=== PATIENT | female | born 1970 | race Caucasian/White ===

== ENCOUNTER 2017-04-12 07:39 | Day surgery (SDC) | payer OTHER ==
[2017-04-12] MEDS ORDERED: IRON SUCROSE INJECTION 200 MG in SODIUM CHLORIDE 100 ML IVPB ONE (08:00)
[2017-04-12] MEDS ORDERED: IRON SUCROSE INJECTION 100 MG in SODIUM CHLORIDE 100 ML IVPB ONE (08:00)
[2017-04-12 10:20] LABS: BASOPHIL 0.7 % (0-2.0); EOSINOPHIL 3.8 % (0-4.5); MCH 20.5 pg (25.7-33.7); MCHC 30.7 g/dl (32.0-36.0); MEAN CELL VOLUME 66.6 fl (80-96); MEAN PLT VOLUME 8.9 fl (7.5-11.1); PLATELET COUNT 239 K/MM3 (134-434); RDW 18.8 % (11.6-15.6); WHITE BLOOD COUNT 5.4 K/mm3 (4.0-10.0)
[2017-04-12 10:52] LABS: ALBUMIN 3.4 g/dl (3.4-5.0); ANION GAP 11 (8-16); BILIRUBIN,DIRECT 0.1 mg/dL (0.0-0.2); BILIRUBIN,TOTAL 0.3 mg/dL (0.2-1.0); CALCIUM 8.2 mg/dL (8.5-10.1); CO2 20 mmol/L (21-32); CREATININE 0.7 mg/dL (0.55-1.02); GLUCOSE,RANDOM 87 mg/dL (74-106); MAGNESIUM 1.8 mg/dL (1.8-2.4); SGOT/AST 10 U/L (15-37); SGPT/ALT 14 U/L (12-78); TOT PROT 7.1 g/dl (6.4-8.2)
[2017-04-12 10:55] LABS: ALK PHOS 137 U/L (45-117); FERRITIN 6.064 ng/ml (6.9-282.5)
[2017-04-12 11:31] VITALS: BP 101/62; PULSE 68; TEMP 98.9
== END 2017-04-12 11:45 | disposition home or self-care (01) ==
LOC: JONCNONCHE 07:39 → J7W 10:10 → JONCNONCHE 11:45
PROVIDERS: ATTEND Internal Medicine Hematology & Oncology
PROC: 3E033GC Introduction of Other Therapeutic Substance into Peripheral Vein, Percutaneous Approach (ICD-10-PCS; principal; 2017-04-12)
DX: D50.9 Iron deficiency anemia, unspecified (principal); Z98.84 Bariatric surgery status
CPT/HCPCS: 36415; 80053; 80076; 82728; 83735; 85025; 96365; J1756

== ENCOUNTER 2017-04-26 07:35 | Day surgery (SDC) | payer OTHER ==
[2017-04-26] MEDS ORDERED: IRON SUCROSE INJECTION 200 MG in SODIUM CHLORIDE 100 ML IVPB ONE (08:00)
[2017-04-26] MEDS ORDERED: IRON SUCROSE INJECTION 100 MG in SODIUM CHLORIDE 100 ML IVPB ONE (08:00)
[2017-04-26 08:25] VITALS: TEMP 98.5
[2017-04-26 09:01] VITALS: BP 103/64; PULSE 63
== END 2017-04-26 09:10 | disposition home or self-care (01) ==
LOC: JONCCHEMO 07:35 → J7W 08:10 → JONCCHEMO 09:10
PROVIDERS: ATTEND Internal Medicine Hematology & Oncology
PROC: 3E033GC Introduction of Other Therapeutic Substance into Peripheral Vein, Percutaneous Approach (ICD-10-PCS; principal; 2017-04-26)
DX: D50.9 Iron deficiency anemia, unspecified (principal)
CPT/HCPCS: 96365; 96417; J1756

== ENCOUNTER 2017-05-20 07:35 | Day surgery (SDC) | payer OTHER ==
[2017-05-20] MEDS: IRON SUCROSE INJECTION 200 MG in SODIUM CHLORIDE 100 ML IVPB ONE ×2 (08:03→11:27)
[2017-05-20] MEDS: CYANOCOBALAMIN (VITAMIN B-12) 1000 MCG/1 ML VIAL IM ONE ×2 (08:03→11:25)
[2017-05-20 09:24] VITALS: TEMP 98.3
[2017-05-20 09:34] VITALS: BP 113/70; PULSE 87
== END 2017-05-20 08:45 | disposition home or self-care (01) ==
LOC: JONCCHEMO 07:35 → J7W 07:57 → JONCCHEMO 08:45
PROVIDERS: ATTEND Internal Medicine Hematology & Oncology
PROC: 3E033GC Introduction of Other Therapeutic Substance into Peripheral Vein, Percutaneous Approach (ICD-10-PCS; principal; 2017-05-20)
PROC: 3E013GC Introduction of Other Therapeutic Substance into Subcutaneous Tissue, Percutaneous Approach (ICD-10-PCS; 2017-05-20)
DX: D50.9 Iron deficiency anemia, unspecified (principal); K90.9 Intestinal malabsorption, unspecified
CPT/HCPCS: 96417; J1756

== ENCOUNTER 2017-06-15 07:14 | Day surgery (SDC) | payer OTHER ==
[2017-06-15] MEDS ORDERED: IRON SUCROSE INJECTION 200 MG in SODIUM CHLORIDE 100 ML IVPB ONE (08:00)
[2017-06-15] MEDS ORDERED: CYANOCOBALAMIN (VITAMIN B-12) 1000 MCG/1 ML VIAL IM ONE (08:30)
[2017-06-15 08:48] VITALS: TEMP 98.9
[2017-06-15 09:40] VITALS: BP 116/67; PULSE 75
== END 2017-06-15 09:20 | disposition home or self-care (01) ==
LOC: JONCNONCHE 07:14 → J7W 08:26 → JONCNONCHE 09:20
PROVIDERS: ATTEND Internal Medicine Hematology & Oncology
PROC: 3E033GC Introduction of Other Therapeutic Substance into Peripheral Vein, Percutaneous Approach (ICD-10-PCS; principal; 2017-06-15)
PROC: 3E023GC Introduction of Other Therapeutic Substance into Muscle, Percutaneous Approach (ICD-10-PCS; 2017-06-15)
DX: D50.9 Iron deficiency anemia, unspecified (principal); K90.9 Intestinal malabsorption, unspecified
CPT/HCPCS: 96417; J1756

== ENCOUNTER 2017-07-15 07:27 | Day surgery (SDC) | payer OTHER ==
[2017-07-15] MEDS ORDERED: IRON SUCROSE INJECTION 200 MG in SODIUM CHLORIDE 100 ML IVPB ONE ×2 (09:00→13:00)
[2017-07-15] MEDS ORDERED: CYANOCOBALAMIN (VITAMIN B-12) 1000 MCG/1 ML VIAL IM ONE (09:00)
[2017-07-15 09:29] VITALS: BP 118/79; PULSE 89; TEMP 97.5
[2017-07-15 10:01] LABS: BASOPHIL 0.5 % (0-2.0); EOSINOPHIL 2.4 % (0-4.5); MCH 21.9 pg (25.7-33.7); MEAN CELL VOLUME 70.7 fl (80-96); MEAN PLT VOLUME 8.4 fl (7.5-11.1); PLATELET COUNT 255 K/MM3 (134-434); RDW 18.5 % (11.6-15.6); WHITE BLOOD COUNT 5.7 K/mm3 (4.0-10.0)
[2017-07-15 12:19] LABS: ALBUMIN 3.5 g/dl (3.4-5.0); ALK PHOS 155 U/L (45-117); ANION GAP 9 (8-16); BILIRUBIN,DIRECT < 0.2 mg/dL (0.0-0.2); BILIRUBIN,TOTAL 0.3 mg/dL (0.2-1.0); CALCIUM 7.9 mg/dL (8.5-10.1); CO2 24 mmol/L (21-32); CREATININE 0.4 mg/dL (0.55-1.02); GLUCOSE,RANDOM 88 mg/dL (74-106); MAGNESIUM 2.2 mg/dL (1.8-2.4); SGOT/AST 9 U/L (15-37); SGPT/ALT 13 U/L (12-78); TOT PROT 7.1 g/dl (6.4-8.2)
[2017-07-15 12:21] LABS: FERRITIN 6.574 ng/ml (6.9-282.5)
[2017-07-16 08:07] LABS: SERUM IRON 247 ug/dL (27-159); TOTAL IRON BINDING CAPACITY 555 ug/dL (250-450); UIBC 308 ug/dL (131-425)
== END 2017-07-15 09:10 | disposition home or self-care (01) ==
LOC: JONCNONCHE 07:27 → J7W 08:30 → JONCNONCHE 09:10
PROVIDERS: ATTEND Internal Medicine Hematology & Oncology
PROC: 3E033GC Introduction of Other Therapeutic Substance into Peripheral Vein, Percutaneous Approach (ICD-10-PCS; principal; 2017-07-15)
PROC: 3E013GC Introduction of Other Therapeutic Substance into Subcutaneous Tissue, Percutaneous Approach (ICD-10-PCS; 2017-07-15)
DX: D50.9 Iron deficiency anemia, unspecified (principal); K90.9 Intestinal malabsorption, unspecified
CPT/HCPCS: 36415; 80053; 80076; 82607; 82728; 83540; 83550; 83735; 84702; 85025; 96365; 96372; 96417; J1756

== ENCOUNTER 2017-08-11 07:39 | Day surgery (SDC) | payer OTHER ==
[2017-08-11] MEDS ORDERED: IRON SUCROSE INJECTION 200 MG in SODIUM CHLORIDE 100 ML IVPB ONE (10:00)
[2017-08-11] MEDS ORDERED: CYANOCOBALAMIN (VITAMIN B-12) 1000 MCG/1 ML VIAL IM ONE (10:00)
[2017-08-11 10:16] VITALS: BP 122/76; PULSE 90; TEMP 98.1
== END 2017-08-11 09:45 | disposition home or self-care (01) ==
LOC: JONCNONCHE 07:39 → J7W 08:27 → JONCNONCHE 09:45
PROVIDERS: ATTEND Internal Medicine Hematology & Oncology
PROC: 3E033GC Introduction of Other Therapeutic Substance into Peripheral Vein, Percutaneous Approach (ICD-10-PCS; principal; 2017-08-11)
DX: D50.9 Iron deficiency anemia, unspecified (principal); K90.9 Intestinal malabsorption, unspecified
CPT/HCPCS: 96365; J1756

== ENCOUNTER 2017-09-08 07:19 | Day surgery (SDC) | payer OTHER ==
[~2017-09-08 07:19] MED LIST: IRON SUCROSE INJECTION 200 MG in SODIUM CHLORIDE 100 ML IVPB ONE
[2017-09-08] MEDS ORDERED: IRON SUCROSE INJECTION 200 MG in SODIUM CHLORIDE 100 ML IVPB ONE (08:00)
[2017-09-08] MEDS ORDERED: IRON SUCROSE INJECTION 100 MG in SODIUM CHLORIDE 100 ML IVPB ONE (08:00)
[2017-09-08] MEDS ORDERED: CYANOCOBALAMIN (VITAMIN B-12) 1000 MCG/1 ML VIAL IM ONE (08:00)
[2017-09-08 09:23] LABS: BASO % 0.6 % (0-2.0); EOS % 2.9 % (0-4.5); HEMATOCRIT 38.1 % (32.4-45.2); HEMOGLOBIN 11.8 GM/dL (10.7-15.3); MCH 22.1 pg (25.7-33.7); MCHC 30.9 g/dl (32.0-36.0); MEAN CELL VOLUME 71.5 fl (80-96); MEAN PLT VOLUME 8.3 fl (7.5-11.1); MONO % 7.6 % (3.8-10.2); NEUT % 55.9 % (42.8-82.8); PLATELET COUNT 249 K/MM3 (134-434); RBC 5.34 M/mm3 (3.60-5.2); RDW 18.5 % (11.6-15.6); WHITE BLOOD COUNT 5.1 K/mm3 (4.0-10.0)
[2017-09-08 09:52] LABS: ALBUMIN 3.5 g/dl (3.4-5.0); ANION GAP 8 (8-16); BILIRUBIN,DIRECT < 0.2 mg/dL (0.0-0.2); BLOOD UREA NITROGEN 10 mg/dL (7-18); CHLORIDE 106 mmol/L (98-107); CO2 25 mmol/L (21-32); CREATININE 0.3 mg/dL (0.55-1.02); GLUCOSE,RANDOM 85 mg/dL (74-106); MAGNESIUM 1.9 mg/dL (1.8-2.4); SGOT/AST 8 U/L (15-37); SGPT/ALT 11 U/L (12-78); SODIUM 139 mmol/L (136-145)
[2017-09-08 09:54] LABS: ALK PHOS 141 U/L (45-117); BILIRUBIN,TOTAL 0.5 mg/dL (0.2-1.0)
[2017-09-08 11:14] VITALS: TEMP 98.1
[2017-09-08 11:22] VITALS: BP 117/64; PULSE 71
== END 2017-09-08 09:50 | disposition home or self-care (01) ==
LOC: JONCNONCHE 07:19 → J7W 09:15 → JONCNONCHE 09:50
PROVIDERS: ATTEND Internal Medicine Hematology & Oncology
PROC: 3E033GC Introduction of Other Therapeutic Substance into Peripheral Vein, Percutaneous Approach (ICD-10-PCS; principal; 2017-09-08)
DX: D50.9 Iron deficiency anemia, unspecified (principal)
CPT/HCPCS: 36415; 80053; 80076; 82728; 83735; 85025; 96365; J1756

== ENCOUNTER 2017-10-20 07:05 | Day surgery (SDC) | payer OTHER ==
[2017-10-20] MEDS ORDERED: IRON SUCROSE INJECTION 200 MG in SODIUM CHLORIDE 100 ML IVPB ONE (08:00)
[2017-10-20] MEDS ORDERED: CYANOCOBALAMIN (VITAMIN B-12) 1000 MCG/1 ML VIAL IM ONE (08:00)
[2017-10-20 08:17] VITALS: TEMP 98.4
[2017-10-20 09:05] LABS: BASO % 0.6 % (0-2.0); EOS % 3.2 % (0-4.5); HEMOGLOBIN 11.4 GM/dL (10.7-15.3); MCH 22.7 pg (25.7-33.7); MCHC 31.8 g/dl (32.0-36.0); MEAN CELL VOLUME 71.5 fl (80-96); MEAN PLT VOLUME 8.6 fl (7.5-11.1); MONO % 6.1 % (3.8-10.2); NEUT % 60.1 % (42.8-82.8); PLATELET COUNT 245 K/MM3 (134-434); RBC 5.03 M/mm3 (3.60-5.2); WHITE BLOOD COUNT 5.5 K/mm3 (4.0-10.0)
[2017-10-20 09:31] LABS: ALBUMIN 3.4 g/dl (3.4-5.0); ANION GAP 12 (8-16); BLOOD UREA NITROGEN 11 mg/dL (7-18); CALCIUM 8.3 mg/dL (8.5-10.1); CHLORIDE 109 mmol/L (98-107); CO2 20 mmol/L (21-32); CREATININE 0.5 mg/dL (0.55-1.02); GLUCOSE,RANDOM 115 mg/dL (74-106); POTASSIUM 3.6 mmol/L (3.5-5.1); SGOT/AST 7 U/L (15-37); SGPT/ALT 7 U/L (12-78); SODIUM 141 mmol/L (136-145)
[2017-10-20 09:33] LABS: ALK PHOS 130 U/L (45-117); BILIRUBIN,TOTAL 0.4 mg/dL (0.2-1.0); TOT PROT 6.8 g/dl (6.4-8.2)
[2017-10-20 09:42] LABS: ALBUMIN 3.4 g/dl (3.4-5.0); ALK PHOS 134 U/L (45-117); BILIRUBIN,DIRECT < 0.2 mg/dL (0.0-0.2); BILIRUBIN,TOTAL 0.4 mg/dL (0.2-1.0); MAGNESIUM 1.9 mg/dL (1.8-2.4); SGOT/AST 9 U/L (15-37); SGPT/ALT 8 U/L (12-78); TOT PROT 6.9 g/dl (6.4-8.2)
[2017-10-20 10:50] VITALS: BP 112/65; PULSE 82
== END 2017-10-20 10:10 | disposition home or self-care (01) ==
LOC: JONCCHEMO 07:05 → J7W 09:07 → JONCCHEMO 10:10
PROVIDERS: ATTEND Internal Medicine Hematology & Oncology
PROC: 3E033GC Introduction of Other Therapeutic Substance into Peripheral Vein, Percutaneous Approach (ICD-10-PCS; principal; 2017-10-20)
DX: D50.9 Iron deficiency anemia, unspecified (principal)
CPT/HCPCS: 36415; 80053; 80076; 82607; 83735; 85025; 96365; 96372; J1756

== ENCOUNTER 2017-11-10 07:29 | Day surgery (SDC) | payer OTHER ==
[2017-11-10] MEDS ORDERED: IRON SUCROSE INJECTION 100 MG in SODIUM CHLORIDE 100 ML IVPB ONE (08:00)
[2017-11-10] MEDS ORDERED: IRON SUCROSE INJECTION 200 MG in SODIUM CHLORIDE 100 ML IVPB ONE (08:00)
[2017-11-10] MEDS ORDERED: CYANOCOBALAMIN (VITAMIN B-12) 1000 MCG/1 ML VIAL IM ONE (08:00)
[2017-11-10 13:03] VITALS: TEMP 99.1
[2017-11-10 13:05] VITALS: BP 92/37; PULSE 100
== END 2017-11-10 10:00 | disposition home or self-care (01) ==
LOC: JONCNONCHE 07:29 → J7W 09:13 → JONCNONCHE 10:00
PROVIDERS: ATTEND Internal Medicine Hematology & Oncology
PROC: 3E033GC Introduction of Other Therapeutic Substance into Peripheral Vein, Percutaneous Approach (ICD-10-PCS; principal; 2017-11-10)
PROC: 3E013GC Introduction of Other Therapeutic Substance into Subcutaneous Tissue, Percutaneous Approach (ICD-10-PCS; 2017-11-10)
DX: D50.9 Iron deficiency anemia, unspecified (principal)
CPT/HCPCS: 96365; 96372; J1756

== ENCOUNTER 2017-12-01 07:29 | Day surgery (SDC) | payer OTHER ==
[2017-12-01] MEDS ORDERED: CYANOCOBALAMIN (VITAMIN B-12) 1000 MCG/1 ML VIAL IM ONE (10:00)
[2017-12-01] MEDS ORDERED: IRON SUCROSE INJECTION 200 MG in SODIUM CHLORIDE 100 ML IVPB ONE (10:00)
[2017-12-01 10:18] LABS: BASO % 0.7 % (0-2.0); MCH 22.8 pg (25.7-33.7); MCHC 31.7 g/dl (32.0-36.0); MEAN PLT VOLUME 8.2 fl (7.5-11.1); MONO % 7.1 % (3.8-10.2); NEUT % 59.2 % (42.8-82.8); PLATELET COUNT 261 K/MM3 (134-434); RBC 5.27 M/mm3 (3.60-5.2); RDW 17.9 % (11.6-15.6); WHITE BLOOD COUNT 4.8 K/mm3 (4.0-10.0)
[2017-12-01 10:45] LABS: ALBUMIN 3.7 g/dl (3.4-5.0); ALBUMIN 3.8 g/dl (3.4-5.0); ALK PHOS 136 U/L (45-117); ANION GAP 7 (8-16); BILIRUBIN,DIRECT < 0.2 mg/dL (0.0-0.2); BILIRUBIN,TOTAL 0.3 mg/dL (0.2-1.0); BLOOD UREA NITROGEN 10 mg/dL (7-18); CALCIUM 8.5 mg/dL (8.5-10.1); CHLORIDE 110 mmol/L (98-107); CO2 25 mmol/L (21-32); CREATININE 0.5 mg/dL (0.55-1.02); GLUCOSE,RANDOM 71 mg/dL (74-106); MAGNESIUM 1.9 mg/dL (1.8-2.4); POTASSIUM 3.8 mmol/L (3.5-5.1); SGOT/AST 10 U/L (15-37); SGOT/AST 11 U/L (15-37); SGPT/ALT 7 U/L (12-78); SGPT/ALT 9 U/L (12-78); SODIUM 142 mmol/L (136-145); TOT PROT 7.2 g/dl (6.4-8.2)
[2017-12-01 10:46] LABS: ALK PHOS 134 U/L (45-117)
[2017-12-01 15:49] VITALS: TEMP 98.2
[2017-12-01 15:50] VITALS: BP 99/61; PULSE 99
== END 2017-12-01 11:30 | disposition home or self-care (01) ==
LOC: JONCNONCHE 07:29 → J7W 10:27 → JONCNONCHE 11:30
PROVIDERS: ATTEND Internal Medicine Hematology & Oncology
PROC: 3E033GC Introduction of Other Therapeutic Substance into Peripheral Vein, Percutaneous Approach (ICD-10-PCS; principal; 2017-12-01)
DX: D50.9 Iron deficiency anemia, unspecified (principal)
CPT/HCPCS: 36415; 80053; 80076; 83735; 85025; 96365; J1756

== ENCOUNTER 2017-12-22 07:21 | Day surgery (SDC) | payer OTHER ==
[2017-12-22] MEDS ORDERED: CYANOCOBALAMIN (VITAMIN B-12) 1000 MCG/1 ML VIAL IM ONE (08:00)
[2017-12-22] MEDS ORDERED: IRON SUCROSE INJECTION 200 MG in SODIUM CHLORIDE 100 ML IVPB ONE (08:00)
[2017-12-22 09:02] LABS: BASO % 0.6 % (0-2.0); EOS % 2.7 % (0-4.5); HEMOGLOBIN 12.2 GM/dL (10.7-15.3); LYMPH % 31.6 % (8-40); MCH 23.3 pg (25.7-33.7); MCHC 32.1 g/dl (32.0-36.0); MEAN CELL VOLUME 72.5 fl (80-96); MEAN PLT VOLUME 8.3 fl (7.5-11.1); MONO % 7.6 % (3.8-10.2); NEUT % 57.5 % (42.8-82.8); PLATELET COUNT 279 K/MM3 (134-434); RBC 5.25 M/mm3 (3.60-5.2); RDW 18.4 % (11.6-15.6); WHITE BLOOD COUNT 5.1 K/mm3 (4.0-10.0)
[2017-12-22 09:27] LABS: ALBUMIN 3.4 g/dl (3.4-5.0); ANION GAP 8 (8-16); BILIRUBIN,DIRECT < 0.2 mg/dL (0.0-0.2); BILIRUBIN,TOTAL 0.5 mg/dL (0.2-1.0); BLOOD UREA NITROGEN 9 mg/dL (7-18); CHLORIDE 109 mmol/L (98-107); CO2 24 mmol/L (21-32); CREATININE 0.5 mg/dL (0.55-1.02); GLUCOSE,RANDOM 87 mg/dL (74-106); MAGNESIUM 2.1 mg/dL (1.8-2.4); POTASSIUM 3.9 mmol/L (3.5-5.1); SGOT/AST 7 U/L (15-37); SGPT/ALT 10 U/L (12-78); SODIUM 141 mmol/L (136-145)
[2017-12-22 09:28] LABS: ALK PHOS 143 U/L (45-117)
[2017-12-22 10:53] VITALS: TEMP 98.7
[2017-12-22 10:54] VITALS: BP 122/69; PULSE 68
== END 2017-12-22 10:10 | disposition home or self-care (01) ==
LOC: JONCNONCHE 07:21
PROVIDERS: ATTEND Internal Medicine Hematology & Oncology
PROC: 3E033GC Introduction of Other Therapeutic Substance into Peripheral Vein, Percutaneous Approach (ICD-10-PCS; principal; 2017-12-22)
DX: D50.9 Iron deficiency anemia, unspecified (principal)
CPT/HCPCS: 36415; 80053; 80076; 83735; 85025; 96365; J1756

== ENCOUNTER 2018-01-12 07:21 | Day surgery (SDC) | payer OTHER ==
[2018-01-12] MEDS ORDERED: CYANOCOBALAMIN (VITAMIN B-12) 1000 MCG/1 ML VIAL IM ONE (08:00)
[2018-01-12] MEDS ORDERED: IRON SUCROSE INJECTION 200 MG in SODIUM CHLORIDE 100 ML IVPB ONE (08:00)
[2018-01-12 09:22] LABS: BASO % 0.4 % (0-2.0); EOS % 2.8 % (0-4.5); HEMATOCRIT 37.3 % (32.4-45.2); LYMPH % 30.1 % (8-40); MCH 23.2 pg (25.7-33.7); MCHC 32.1 g/dl (32.0-36.0); MEAN CELL VOLUME 72.4 fl (80-96); MEAN PLT VOLUME 8.2 fl (7.5-11.1); MONO % 7.8 % (3.8-10.2); NEUT % 58.9 % (42.8-82.8); PLATELET COUNT 266 K/MM3 (134-434); RBC 5.15 M/mm3 (3.60-5.2); RDW 18.8 % (11.6-15.6); WHITE BLOOD COUNT 5.6 K/mm3 (4.0-10.0)
[2018-01-12 09:56] LABS: ALK PHOS 135 U/L (45-117); BILIRUBIN,TOTAL 0.2 mg/dL (0.2-1.0); CHLORIDE 107 mmol/L (98-107); POTASSIUM 3.7 mmol/L (3.5-5.1); SGOT/AST 10 U/L (15-37); SODIUM 139 mmol/L (136-145)
[2018-01-12 10:10] LABS: ALBUMIN 3.4 g/dl (3.4-5.0); ANION GAP 9 (8-16); BILIRUBIN,DIRECT < 0.2 mg/dL (0.0-0.2); BLOOD UREA NITROGEN 8 mg/dL (7-18); CALCIUM 8.1 mg/dL (8.5-10.1); CO2 23 mmol/L (21-32); CREATININE 0.4 mg/dL (0.55-1.02); GLUCOSE,RANDOM 88 mg/dL (74-106); MAGNESIUM 1.9 mg/dL (1.8-2.4); SGPT/ALT 13 U/L (12-78)
[2018-01-12 12:57] LABS: GAMMA GLUTAMYL TRANSPEPTIDASE 12 U/L (5-85)
[2018-01-12 16:43] VITALS: TEMP 98.3
[2018-01-12 19:11] VITALS: BP 110/65; PULSE 89
== END 2018-01-12 17:40 | disposition home or self-care (01) ==
LOC: JONCNONCHE 07:21 → J7W 16:15 → JONCNONCHE 17:40
PROVIDERS: ATTEND Internal Medicine Hematology & Oncology
PROC: 3E033GC Introduction of Other Therapeutic Substance into Peripheral Vein, Percutaneous Approach (ICD-10-PCS; principal; 2018-01-12)
PROC: 3E013GC Introduction of Other Therapeutic Substance into Subcutaneous Tissue, Percutaneous Approach (ICD-10-PCS; 2018-01-12)
DX: D50.9 Iron deficiency anemia, unspecified (principal)
CPT/HCPCS: 36415; 80048; 80076; 82306; 82977; 83735; 85025; 96365; 96372; J1756

== ENCOUNTER 2018-01-26 07:36 | Day surgery (SDC) | payer OTHER ==
[2018-01-26 09:22] VITALS: TEMP 98.7
[2018-01-26] MEDS ORDERED: CYANOCOBALAMIN (VITAMIN B-12) 1000 MCG/1 ML VIAL IM ONE (10:00)
[2018-01-26] MEDS ORDERED: IRON SUCROSE INJECTION 200 MG in SODIUM CHLORIDE 100 ML IVPB ONE (10:00)
[2018-01-26 10:08] VITALS: BP 119/69; PULSE 68
== END 2018-01-26 09:50 | disposition home or self-care (01) ==
LOC: JONCNONCHE 07:36 → J7W 09:17 → JONCNONCHE 09:50
PROVIDERS: ATTEND Internal Medicine Hematology & Oncology
PROC: 3E033GC Introduction of Other Therapeutic Substance into Peripheral Vein, Percutaneous Approach (ICD-10-PCS; principal; 2018-01-26)
DX: D50.9 Iron deficiency anemia, unspecified (principal)
CPT/HCPCS: 96365; J1756

== ENCOUNTER 2018-03-02 07:36 | Day surgery (SDC) | payer OTHER ==
[2018-03-02] MEDS ORDERED: IRON SUCROSE INJECTION 200 MG in SODIUM CHLORIDE 100 ML IVPB ONE (08:00)
[2018-03-02] MEDS ORDERED: CYANOCOBALAMIN (VITAMIN B-12) 1000 MCG/1 ML VIAL IM ONE (08:00)
[2018-03-02 09:56] LABS: BASO % 0.5 % (0-2.0); EOS % 3.5 % (0-4.5); HEMATOCRIT 36.9 % (32.4-45.2); LYMPH % 26.9 % (8-40); MCH 24.6 pg (25.7-33.7); MCHC 32.5 g/dl (32.0-36.0); MEAN CELL VOLUME 75.6 fl (80-96); MEAN PLT VOLUME 8.3 fl (7.5-11.1); MONO % 7.2 % (3.8-10.2); NEUT % 61.9 % (42.8-82.8); PLATELET COUNT 254 K/MM3 (134-434); RBC 4.88 M/mm3 (3.60-5.2); RDW 17.6 % (11.6-15.6); WHITE BLOOD COUNT 6.1 K/mm3 (4.0-10.0)
[2018-03-02 10:19] LABS: ALBUMIN 3.4 g/dl (3.4-5.0); ALK PHOS 139 U/L (45-117); BILIRUBIN,DIRECT < 0.2 mg/dL (0.0-0.2); BILIRUBIN,TOTAL 0.2 mg/dL (0.2-1.0); MAGNESIUM 1.8 mg/dL (1.8-2.4); SGOT/AST 8 U/L (15-37); SGPT/ALT 13 U/L (12-78); TOT PROT 6.7 g/dl (6.4-8.2)
[2018-03-02 10:20] LABS: CHLORIDE 110 mmol/L (98-107); POTASSIUM 4.1 mmol/L (3.5-5.1); SGOT/AST 8 U/L (15-37); SODIUM 143 mmol/L (136-145)
[2018-03-02 10:28] LABS: ALBUMIN 3.4 g/dl (3.4-5.0); ALK PHOS 140 U/L (45-117); ANION GAP 9 (8-16); BILIRUBIN,TOTAL 0.3 mg/dL (0.2-1.0); BLOOD UREA NITROGEN 9 mg/dL (7-18); CALCIUM 8.4 mg/dL (8.5-10.1); CO2 24 mmol/L (21-32); CREATININE 0.5 mg/dL (0.55-1.02); GLUCOSE,RANDOM 91 mg/dL (74-106); SGPT/ALT 12 U/L (12-78); TOT PROT 6.6 g/dl (6.4-8.2)
[2018-03-02 13:37] VITALS: BP 103/78; PULSE 78; TEMP 97.9
[2018-03-03 08:06] LABS: SERUM IRON SATURATION 9 % (15-55); TOTAL IRON BINDING CAPACITY 411 ug/dL (250-450); UIBC 375 ug/dL (131-425)
== END 2018-03-02 11:00 | disposition home or self-care (01) ==
LOC: JONCNONCHE 07:36 → J7W 09:53 → JONCNONCHE 11:00
PROVIDERS: ATTEND Internal Medicine Hematology & Oncology
PROC: 3E033GC Introduction of Other Therapeutic Substance into Peripheral Vein, Percutaneous Approach (ICD-10-PCS; principal; 2018-03-02)
DX: D50.9 Iron deficiency anemia, unspecified (principal)
CPT/HCPCS: 36415; 80053; 80076; 82607; 82728; 83540; 83550; 83735; 84439; 84443; 85025; 96365; J1756

== ENCOUNTER 2018-04-28 07:28 | Day surgery (SDC) | payer OTHER ==
[2018-04-28] MEDS ORDERED: CYANOCOBALAMIN (VITAMIN B-12) 1000 MCG/1 ML VIAL IM ONE (08:00)
[2018-04-28] MEDS ORDERED: IRON SUCROSE INJECTION 200 MG in SODIUM CHLORIDE 100 ML IVPB ONE (08:00)
[2018-04-28 09:45] LABS: BASO % 0.6 % (0-2.0); EOS % 2.5 % (0-4.5); HEMATOCRIT 38.5 % (32.4-45.2); HEMOGLOBIN 12.4 GM/dL (10.7-15.3); LYMPH % 24.2 % (8-40); MCH 24.9 pg (25.7-33.7); MCHC 32.3 g/dl (32.0-36.0); MEAN PLT VOLUME 8.2 fl (7.5-11.1); MONO % 8.8 % (3.8-10.2); NEUT % 63.9 % (42.8-82.8); PLATELET COUNT 227 K/MM3 (134-434); RDW 16.1 % (11.6-15.6)
[2018-04-28 10:18] LABS: ALBUMIN 3.2 g/dl (3.4-5.0); ALK PHOS 135 U/L (45-117); ALK PHOS 136 U/L (45-117); ANION GAP 7 MMOL/L (8-16); BILIRUBIN,DIRECT < 0.2 mg/dL (0.0-0.2); BILIRUBIN,TOTAL 0.3 mg/dL (0.2-1); BLOOD UREA NITROGEN 10 mg/dL (7-18); CALCIUM 8.4 mg/dL (8.5-10.1); CHLORIDE 111 mmol/L (98-107); CO2 22 mmol/L (21-32); CREATININE 0.4 mg/dL (0.55-1.3); GLUCOSE,RANDOM 81 mg/dL (74-106); MAGNESIUM 1.8 mg/dL (1.8-2.4); POTASSIUM 3.8 mmol/L (3.5-5.1); SGOT/AST 6 U/L (15-37); SGOT/AST 7 U/L (15-37); SGPT/ALT 11 U/L (13-61); SGPT/ALT 12 U/L (13-61); SODIUM 140 mmol/L (136-145); TOT PROT 6.7 g/dl (6.4-8.2)
[2018-04-28 17:16] VITALS: BP 99/54; PULSE 75; TEMP 98.6
[2018-04-29 08:08] LABS: SERUM IRON SATURATION 10 % (15-55); TOTAL IRON BINDING CAPACITY 415 ug/dL (250-450); UIBC 374 ug/dL (131-425)
== END 2018-04-28 11:30 | disposition home or self-care (01) ==
LOC: JONCNONCHE 07:28 → J7W 10:24 → JONCNONCHE 11:30
PROVIDERS: ATTEND Internal Medicine Hematology & Oncology
PROC: 3E033GC Introduction of Other Therapeutic Substance into Peripheral Vein, Percutaneous Approach (ICD-10-PCS; principal; 2018-04-28)
DX: D50.9 Iron deficiency anemia, unspecified (principal)
CPT/HCPCS: 36415; 80053; 80076; 82607; 82728; 83540; 83550; 83735; 85025; 96365; J1756

== ENCOUNTER 2018-05-12 07:25 | Day surgery (SDC) | payer OTHER ==
[2018-05-12] MEDS ORDERED: CYANOCOBALAMIN (VITAMIN B-12) 1000 MCG/1 ML VIAL IM ONE (10:00)
[2018-05-12] MEDS ORDERED: IRON SUCROSE INJECTION 200 MG in SODIUM CHLORIDE 100 ML IVPB ONE (10:00)
[2018-05-12 11:34] VITALS: TEMP 97.9
[2018-05-12 11:35] VITALS: BP 112/51; PULSE 82
== END 2018-05-12 09:45 | disposition home or self-care (01) ==
LOC: JONCCHEMO 07:25 → J7W 08:13 → JONCCHEMO 09:45
PROVIDERS: ATTEND Internal Medicine Hematology & Oncology
PROC: 3E033GC Introduction of Other Therapeutic Substance into Peripheral Vein, Percutaneous Approach (ICD-10-PCS; principal; 2018-05-12)
DX: D50.9 Iron deficiency anemia, unspecified (principal)
CPT/HCPCS: 96365; 96372; J1756

== ENCOUNTER 2018-05-25 07:52 | Day surgery (SDC) | payer OTHER ==
[2018-05-25] MEDS ORDERED: CYANOCOBALAMIN (VITAMIN B-12) 1000 MCG/1 ML VIAL IM ONE (10:00)
[2018-05-25] MEDS ORDERED: IRON SUCROSE INJECTION 200 MG in SODIUM CHLORIDE 100 ML IVPB ONE (10:00)
[2018-05-25 10:33] VITALS: TEMP 98.1
[2018-05-25 10:58] VITALS: BP 125/72; PULSE 80
== END 2018-05-25 10:59 | disposition home or self-care (01) ==
LOC: JONCNONCHE 07:52 → J7W 10:10 → JONCNONCHE 10:59
PROVIDERS: ATTEND Internal Medicine Hematology & Oncology
PROC: 3E033GC Introduction of Other Therapeutic Substance into Peripheral Vein, Percutaneous Approach (ICD-10-PCS; principal; 2018-05-25)
DX: D50.9 Iron deficiency anemia, unspecified (principal)
CPT/HCPCS: 96365; 96372; J1756

== ENCOUNTER 2018-06-29 07:44 | Day surgery (SDC) | payer OTHER ==
[2018-06-29] MEDS ORDERED: IRON SUCROSE INJECTION 200 MG in SODIUM CHLORIDE 100 ML IVPB ONE (10:00)
[2018-06-29] MEDS ORDERED: CYANOCOBALAMIN (VITAMIN B-12) 1000 MCG/1 ML VIAL IM ONE (10:00)
[2018-06-29 10:35] VITALS: TEMP 97.9
[2018-06-29 10:36] VITALS: BP 106/66; PULSE 84
== END 2018-06-29 09:45 | disposition home or self-care (01) ==
LOC: JONCNONCHE 07:44 → J7W 09:04 → JONCNONCHE 09:45
PROVIDERS: ATTEND Internal Medicine Hematology & Oncology
PROC: 3E033GC Introduction of Other Therapeutic Substance into Peripheral Vein, Percutaneous Approach (ICD-10-PCS; principal; 2018-06-29)
DX: D50.9 Iron deficiency anemia, unspecified (principal)
CPT/HCPCS: 96365; 96372; J1756

== ENCOUNTER 2018-09-14 07:15 | Day surgery (SDC) | payer OTHER ==
[2018-09-14] MEDS ORDERED: CYANOCOBALAMIN (VITAMIN B-12) 1000 MCG/1 ML VIAL IM ONE (10:00)
[2018-09-14] MEDS ORDERED: ACETAMINOPHEN 325 MG TABLET (FP) PO ONE (10:00)
[2018-09-14] MEDS ORDERED: DIPHENHYDRAMINE 50 MG in SODIUM CHLORIDE 100 ML IVPB ONE (10:00)
[2018-09-14] MEDS ORDERED: FERRIC CARBOXYMALTOSE 750 MG in SODIUM CHLORIDE 250 ML IVPB ONE (10:30)
[2018-09-14 14:12] VITALS: BP 111/61; PULSE 74; TEMP 98.8
== END 2018-09-14 11:45 | disposition home or self-care (01) ==
LOC: JONCNONCHE 07:15 → J7W 09:10 → JONCNONCHE 11:30
PROVIDERS: ATTEND Internal Medicine Hematology & Oncology
PROC: 3E033GC Introduction of Other Therapeutic Substance into Peripheral Vein, Percutaneous Approach (ICD-10-PCS; principal; 2018-09-14)
DX: D50.9 Iron deficiency anemia, unspecified (principal)
CPT/HCPCS: 96365; 96372; J1439

== ENCOUNTER 2018-09-21 07:08 | Day surgery (SDC) | payer OTHER ==
[2018-09-21] MEDS ORDERED: ACETAMINOPHEN 325 MG TABLET (FP) PO ONE (09:00)
[2018-09-21] MEDS ORDERED: DIPHENHYDRAMINE 50 MG in SODIUM CHLORIDE 100 ML IVPB ONE (09:00)
[2018-09-21] MEDS ORDERED: FERRIC CARBOXYMALTOSE 750 MG in SODIUM CHLORIDE 250 ML IVPB ONE (09:30)
[2018-09-21 17:08] VITALS: BP 117/74; PULSE 82; TEMP 98.3
== END 2018-09-21 11:30 | disposition home or self-care (01) ==
LOC: JONCNONCHE 07:08 → JONCCHEMO 07:08 → J7W 09:54 → JONCNONCHE 11:30
PROVIDERS: ATTEND Internal Medicine Hematology & Oncology
PROC: 3E033GC Introduction of Other Therapeutic Substance into Peripheral Vein, Percutaneous Approach (ICD-10-PCS; principal; 2018-09-21)
DX: D50.9 Iron deficiency anemia, unspecified (principal)
CPT/HCPCS: 96365; J1439

== ENCOUNTER 2019-05-19 06:35 | Day surgery (SDC) | payer OTHER ==
[2019-05-19] MEDS ORDERED: ACETAMINOPHEN 325 MG TABLET (FP) PO ONE (10:00)
[2019-05-19] MEDS ORDERED: DIPHENHYDRAMINE 50 MG in SODIUM CHLORIDE 100 ML IVPB ONE (11:00)
[2019-05-19] MEDS ORDERED: FERRIC CARBOXYMALTOSE 750 MG in SODIUM CHLORIDE 250 ML IVPB ONE (11:00)
[2019-05-19 16:01] VITALS: BP 118/71; PULSE 89; TEMP 98.5
== END 2019-05-19 12:00 | disposition home or self-care (01) ==
LOC: JONCCHEMO 06:35 → J7W 10:09 → JONCCHEMO 12:00
PROVIDERS: ATTEND Internal Medicine Hematology & Oncology
PROC: 3E033GC Introduction of Other Therapeutic Substance into Peripheral Vein, Percutaneous Approach (ICD-10-PCS; principal; 2019-05-19)
DX: D50.9 Iron deficiency anemia, unspecified (principal)
CPT/HCPCS: 96365; 96375; J1439

== ENCOUNTER 2019-05-26 05:59 | Day surgery (SDC) | payer OTHER ==
[2019-05-26] MEDS ORDERED: ACETAMINOPHEN 325 MG TABLET (FP) PO ONE (09:30)
[2019-05-26] MEDS ORDERED: DIPHENHYDRAMINE 50 MG in SODIUM CHLORIDE 50 ML IVPB ONE (09:30)
[2019-05-26] MEDS ORDERED: FERRIC CARBOXYMALTOSE 750 MG in SODIUM CHLORIDE 250 ML IVPB ONE (10:00)
[2019-05-26 10:44] VITALS: BP 101/53; PULSE 75
[2019-05-26 10:45] VITALS: TEMP 98.1
== END 2019-05-26 11:05 | disposition home or self-care (01) ==
LOC: JONCNONCHE 05:59 → J7W 08:36 → JONCNONCHE 11:05
PROVIDERS: ATTEND Internal Medicine Hematology & Oncology
PROC: 3E033GC Introduction of Other Therapeutic Substance into Peripheral Vein, Percutaneous Approach (ICD-10-PCS; principal; 2019-05-26)
DX: D50.9 Iron deficiency anemia, unspecified (principal); E53.8 Deficiency of other specified B group vitamins; K90.9 Intestinal malabsorption, unspecified
CPT/HCPCS: 96365; J1439

== ENCOUNTER 2020-01-23 05:46 | Day surgery (SDC) | payer OTHER ==
[2020-01-23 09:34] LABS: BASO % 0.7 % (0-2.0); EOS % 3.9 % (0-4.5); HEMATOCRIT 36.3 % (32.4-45.2); HEMOGLOBIN 11.4 GM/dL (10.7-15.3); LYMPH % 27.7 % (8-40); MCH 23.9 pg (25.7-33.7); MCHC 31.4 g/dl (32.0-36.0); MEAN CELL VOLUME 76.2 fl (80-96); MEAN PLT VOLUME 8.6 fl (7.5-11.1); MONO % 3.4 % (3.8-10.2); NEUT % 64.3 % (42.8-82.8); PLATELET COUNT 250 K/MM3 (134-434); RBC 4.76 M/mm3 (3.60-5.2); RDW 15.3 % (11.6-15.6)
[2020-01-23] MEDS ORDERED: ACETAMINOPHEN 325 MG TABLET (FP) PO ONE (10:00)
[2020-01-23] MEDS ORDERED: diphenhydrAMINE HCL 25 MG CAPSULE (FP) PO ONE (10:00)
[2020-01-23] MEDS ORDERED: CYANOCOBALAMIN (VITAMIN B-12) 1000 MCG/1 ML VIAL IM ONE (10:00)
[2020-01-23] MEDS ORDERED: FERRIC CARBOXYMALTOSE 750 MG in SODIUM CHLORIDE 250 ML IVPB ONE (10:30)
[2020-01-23 10:58] LABS: ALBUMIN 3.4 g/dl (3.4-5.0); BILIRUBIN,DIRECT 0.1 mg/dL (0.0-0.2); BILIRUBIN,TOTAL 0.3 mg/dL (0.2-1); BLOOD UREA NITROGEN 8.7 mg/dL (7-18); CREATININE 0.6 mg/dL (0.55-1.3); POTASSIUM 3.5 mmol/L (3.5-5.1); TOT PROT 6.6 g/dl (6.4-8.2)
[2020-01-23 13:52] VITALS: BP 149/65; PULSE 89; TEMP 98.4
[2020-01-23 14:20] LABS: PHOSPHOROUS 1.8 mg/dL (2.5-4.9)
== END 2020-01-23 10:15 | disposition home or self-care (01) ==
LOC: JONCNONCHE 05:46
PROVIDERS: ATTEND Internal Medicine Hematology & Oncology
PROC: 3E033GC Introduction of Other Therapeutic Substance into Peripheral Vein, Percutaneous Approach (ICD-10-PCS; principal; 2020-01-23)
DX: D50.9 Iron deficiency anemia, unspecified (principal); K90.9 Intestinal malabsorption, unspecified; E53.8 Deficiency of other specified B group vitamins
CPT/HCPCS: 36415; 80048; 80076; 82306; 84100; 84703; 85025; 96365; J1439

== ENCOUNTER 2020-06-03 06:19 | Day surgery (SDC) | payer OTHER ==
[2020-06-03] MEDS ORDERED: FERRIC CARBOXYMALTOSE 750 MG in SODIUM CHLORIDE 250 ML IVPB ONE (09:00)
[2020-06-03] MEDS ORDERED: CYANOCOBALAMIN (VITAMIN B-12) 1000 MCG/1 ML VIAL IM ONE (09:00)
[2020-06-03 09:29] LABS: BASO % 0.3 % (0-2.0); EOS % 2.2 % (0-4.5); HEMATOCRIT 39.5 % (32.4-45.2); HEMOGLOBIN 12.5 GM/dL (10.7-15.3); LYMPH % 17.7 % (8-40); MCH 25.6 pg (25.7-33.7); MCHC 31.7 g/dl (32.0-36.0); MEAN CELL VOLUME 80.8 fl (80-96); MEAN PLT VOLUME 8.5 fl (7.5-11.1); MONO % 6.2 % (3.8-10.2); NEUT % 73.6 % (42.8-82.8); PLATELET COUNT 239 K/MM3 (134-434); RBC 4.89 M/mm3 (3.60-5.2); RDW 14.3 % (11.6-15.6); WHITE BLOOD COUNT 6.8 K/mm3 (4.0-10.0)
[2020-06-03 09:49] LABS: POTASSIUM 3.7 mmol/L (3.5-5.1)
[2020-06-03 09:51] LABS: ALBUMIN 3.4 g/dl (3.4-5.0); BLOOD UREA NITROGEN 7.3 mg/dL (7-18); CALCIUM 8.5 mg/dL (8.5-10.1)
[2020-06-03 09:52] LABS: MAGNESIUM 1.9 mg/dL (1.8-2.4)
[2020-06-03 09:55] LABS: BILIRUBIN,DIRECT 0.2 mg/dL (0.0-0.2); CREATININE 0.4 mg/dL (0.55-1.3); PHOSPHOROUS 1.8 mg/dL (2.5-4.9)
[2020-06-03 09:56] LABS: BILIRUBIN,TOTAL 0.5 mg/dL (0.2-1)
[2020-06-03 09:57] LABS: TOT PROT 6.6 g/dl (6.4-8.2)
[2020-06-03 13:27] VITALS: TEMP 98.9
[2020-06-03 13:29] VITALS: BP 110/64; PULSE 95
== END 2020-06-03 11:20 | disposition home or self-care (01) ==
LOC: JONCNONCHE 06:19
PROVIDERS: ATTEND Internal Medicine Hematology & Oncology
PROC: 3E033GC Introduction of Other Therapeutic Substance into Peripheral Vein, Percutaneous Approach (ICD-10-PCS; principal; 2020-06-03)
DX: D50.9 Iron deficiency anemia, unspecified (principal)
CPT/HCPCS: 36415; 80048; 80076; 83735; 84100; 85025; 96365; J1439

== ENCOUNTER 2020-10-24 07:28 | Day surgery (SDC) | payer OTHER ==
[2020-10-24] MEDS ORDERED: CYANOCOBALAMIN (VITAMIN B-12) 1000 MCG/1 ML VIAL IM ONE (09:50)
[2020-10-24] MEDS ORDERED: FERRIC CARBOXYMALTOSE 750 MG in SODIUM CHLORIDE 250 ML IVPB ONE (10:00)
[2020-10-24 10:11] LABS: BASO % 0.6 % (0-2.0); EOS % 4.4 % (0-4.5); HEMATOCRIT 38.1 % (32.4-45.2); HEMOGLOBIN 12.6 GM/dL (10.7-15.3); LYMPH % 25.1 % (8-40); MCH 26.6 pg (25.7-33.7); MCHC 32.9 g/dl (32.0-36.0); MEAN CELL VOLUME 80.7 fl (80-96); MEAN PLT VOLUME 8.4 fl (7.5-11.1); MONO % 7.2 % (3.8-10.2); NEUT % 62.7 % (42.8-82.8); PLATELET COUNT 232 K/MM3 (134-434); RBC 4.72 M/mm3 (3.60-5.2); RDW 13.7 % (11.6-15.6); WHITE BLOOD COUNT 4.9 K/mm3 (4.0-10.0)
[2020-10-24 10:32] LABS: POTASSIUM 3.8 mmol/L (3.5-5.1)
[2020-10-24 10:34] LABS: CALCIUM 8.2 mg/dL (8.5-10.1)
[2020-10-24 10:35] LABS: ALBUMIN 3.4 g/dl (3.4-5.0); BLOOD UREA NITROGEN 6.3 mg/dL (7-18)
[2020-10-24 10:37] LABS: BILIRUBIN,DIRECT 0.1 mg/dL (0.0-0.2)
[2020-10-24 10:38] LABS: CREATININE 0.5 mg/dL (0.55-1.3); PHOSPHOROUS 2.9 mg/dL (2.5-4.9)
[2020-10-24 10:39] LABS: BILIRUBIN,TOTAL 0.4 mg/dL (0.2-1); TOT PROT 6.7 g/dl (6.4-8.2)
[2020-10-24 14:19] VITALS: TEMP 97.4
[2020-10-24 14:20] VITALS: BP 122/72; PULSE 87
== END 2020-10-24 10:45 | disposition home or self-care (01) ==
LOC: JONCNONCHE 07:28
PROVIDERS: ATTEND Internal Medicine Hematology & Oncology
PROC: 3E033GC Introduction of Other Therapeutic Substance into Peripheral Vein, Percutaneous Approach (ICD-10-PCS; principal; 2020-10-24)
PROC: 3E013GC Introduction of Other Therapeutic Substance into Subcutaneous Tissue, Percutaneous Approach (ICD-10-PCS; 2020-10-24)
DX: D50.9 Iron deficiency anemia, unspecified (principal); M25.572 Pain in left ankle and joints of left foot; E53.8 Deficiency of other specified B group vitamins
CPT/HCPCS: 36415; 73610-TC-LT-FY; 80048; 80076; 84100; 84703; 85025; 96365; 96372; J1439

== ENCOUNTER → 2020-10-31 | Day surgery (SDC) | payer OTHER ==
[~2020-10-31] MED LIST changes: +CYANOCOBALAMIN (VITAMIN B-12) 1000 MCG/1 ML VIAL IM ONE; +FERRIC CARBOXYMALTOSE 750 MG in SODIUM CHLORIDE 250 ML IVPB ONE; -IRON SUCROSE INJECTION 200 MG in SODIUM CHLORIDE 100 ML IVPB ONE
[2020-10-31 10:07] LABS: ALBUMIN 3.5 g/dl (3.4-5.0); BLOOD UREA NITROGEN 7.6 mg/dL (7-18); CALCIUM 8.1 mg/dL (8.5-10.1)
[2020-10-31 10:10] LABS: CREATININE 0.5 mg/dL (0.55-1.3)
[2020-10-31 10:11] LABS: PHOSPHOROUS 1.5 mg/dL (2.5-4.9)
[2020-10-31 10:12] LABS: BILIRUBIN,TOTAL 0.5 mg/dL (0.2-1); TOT PROT 6.7 g/dl (6.4-8.2)
[2020-10-31 15:35] VITALS: BP 103/59; PULSE 77; TEMP 97.8
== END | disposition home or self-care (01) ==
LOC: JONCNONCHE 07:46
PROVIDERS: ATTEND Internal Medicine Hematology & Oncology
PROC: 3E033GC Introduction of Other Therapeutic Substance into Peripheral Vein, Percutaneous Approach (ICD-10-PCS; principal; 2020-10-31)
DX: D50.9 Iron deficiency anemia, unspecified (principal)
CPT/HCPCS: 36415; 80053; 84100; 84703; 96365; J1439

== ENCOUNTER 2021-07-30 07:34 | Day surgery (SDC) | payer OTHER ==
[2021-07-30] MEDS ORDERED: CYANOCOBALAMIN (VITAMIN B-12) 1000 MCG/1 ML VIAL IM ONE (08:45)
[2021-07-30] MEDS ORDERED: IRON SUCROSE INJECTION 200 MG in SODIUM CHLORIDE 90 ML IVPB ONE (09:00)
[2021-07-30 16:56] VITALS: BP 119/72; PULSE 92; TEMP 98.7
== END 2021-07-30 09:35 | disposition home or self-care (01) ==
LOC: JONCNONCHE 07:34
PROVIDERS: ATTEND Internal Medicine Hematology & Oncology
PROC: 3E033GC Introduction of Other Therapeutic Substance into Peripheral Vein, Percutaneous Approach (ICD-10-PCS; principal; 2021-07-30)
DX: D50.9 Iron deficiency anemia, unspecified (principal)
CPT/HCPCS: 96365; J1756

== ENCOUNTER 2021-08-06 07:20 | Day surgery (SDC) | payer OTHER ==
[2021-08-06] MEDS ORDERED: IRON SUCROSE INJECTION 200 MG in SODIUM CHLORIDE 100 ML IVPB ONE (10:00)
[2021-08-06] MEDS ORDERED: CYANOCOBALAMIN (VITAMIN B-12) 1000 MCG/1 ML VIAL IM ONE (10:00)
[2021-08-06 16:02] VITALS: TEMP 97.9
[2021-08-06 16:04] VITALS: BP 117/74; PULSE 88
== END 2021-08-06 10:30 | disposition home or self-care (01) ==
LOC: JONCNONCHE 07:20
PROVIDERS: ATTEND Internal Medicine Hematology & Oncology
DX: D50.9 Iron deficiency anemia, unspecified (principal)
CPT/HCPCS: 96365; J1756

== ENCOUNTER 2021-08-13 07:40 | Day surgery (SDC) | payer OTHER ==
[2021-08-13] MEDS ORDERED: IRON SUCROSE INJECTION 200 MG in SODIUM CHLORIDE 100 ML IVPB ONE (10:00)
[2021-08-13] MEDS ORDERED: CYANOCOBALAMIN (VITAMIN B-12) 1000 MCG/1 ML VIAL IM ONE (10:00)
[2021-08-13 15:43] VITALS: TEMP 98.5
[2021-08-13 15:56] VITALS: BP 112/70; PULSE 77
== END 2021-08-13 10:50 | disposition home or self-care (01) ==
LOC: JONCNONCHE 07:40
PROVIDERS: ATTEND Internal Medicine Hematology & Oncology
DX: D50.9 Iron deficiency anemia, unspecified (principal)
CPT/HCPCS: 96365; J1756

== ENCOUNTER 2021-11-10 08:28 | Day surgery (SDC) | payer OTHER ==
[2021-11-10 08:48] VITALS: TEMP 98.6
[2021-11-10] MEDS ORDERED: CYANOCOBALAMIN (VITAMIN B-12) 1000 MCG/1 ML VIAL IM ONE (10:00)
[2021-11-10] MEDS ORDERED: FERRIC CARBOXYMALTOSE 750 MG in SODIUM CHLORIDE 250 ML IVPB ONE (10:00)
[2021-11-10 10:05] VITALS: BP 118/62; PULSE 88
== END 2021-11-10 10:05 | disposition home or self-care (01) ==
LOC: JONCNONCHE 08:28
PROVIDERS: ATTEND Internal Medicine Hematology & Oncology
PROC: 3E033GC Introduction of Other Therapeutic Substance into Peripheral Vein, Percutaneous Approach (ICD-10-PCS; principal; 2021-11-10)
PROC: 3E013GC Introduction of Other Therapeutic Substance into Subcutaneous Tissue, Percutaneous Approach (ICD-10-PCS; 2021-11-10)
DX: D50.9 Iron deficiency anemia, unspecified (principal)
CPT/HCPCS: 84703; 96365; 96372; J1439

== ENCOUNTER 2021-11-17 06:22 | Day surgery (SDC) | payer OTHER ==
[2021-11-17] MEDS ORDERED: FERRIC CARBOXYMALTOSE 750 MG in SODIUM CHLORIDE 250 ML IVPB ONE (10:00)
[2021-11-17] MEDS ORDERED: CYANOCOBALAMIN (VITAMIN B-12) 1000 MCG/1 ML VIAL IM ONE (10:00)
[2021-11-17 16:37] VITALS: TEMP 98.1
[2021-11-17 16:47] VITALS: BP 109/64; PULSE 75
== END 2021-11-17 11:15 | disposition home or self-care (01) ==
LOC: JONCNONCHE 06:22
PROVIDERS: ATTEND Internal Medicine Hematology & Oncology
PROC: 3E033GC Introduction of Other Therapeutic Substance into Peripheral Vein, Percutaneous Approach (ICD-10-PCS; principal; 2021-11-17)
PROC: 3E013GC Introduction of Other Therapeutic Substance into Subcutaneous Tissue, Percutaneous Approach (ICD-10-PCS; 2021-11-17)
DX: D50.9 Iron deficiency anemia, unspecified (principal); E53.8 Deficiency of other specified B group vitamins
CPT/HCPCS: 84703; 96365; 96372; J1439

== ENCOUNTER 2022-03-16 07:16 | Day surgery (SDC) | payer OTHER ==
[2022-03-16] MEDS ORDERED: FERRIC CARBOXYMALTOSE 750 MG in SODIUM CHLORIDE 250 ML IVPB ONE (11:00)
[2022-03-16 18:38] VITALS: RESP 20; TEMP 98.9
[2022-03-16 18:40] VITALS: BP 100/62; PULSE 86
== END 2022-03-16 18:45 | disposition home or self-care (01) ==
LOC: JONCNONCHE 07:16 → J7W 17:18 → JONCNONCHE 18:45
PROVIDERS: ATTEND Internal Medicine Hematology & Oncology
PROC: 3E033GC Introduction of Other Therapeutic Substance into Peripheral Vein, Percutaneous Approach (ICD-10-PCS; principal; 2022-03-16)
DX: D50.9 Iron deficiency anemia, unspecified (principal)
CPT/HCPCS: 36415; 84100; 84703; 96365; J1439

== ENCOUNTER 2022-03-23 07:45 | Day surgery (SDC) | payer OTHER ==
[2022-03-23] MEDS ORDERED: FERRIC CARBOXYMALTOSE 750 MG in SODIUM CHLORIDE 250 ML IVPB ONE (12:00)
[2022-03-23 17:42] VITALS: BP 97/64; PULSE 96; RESP 18; TEMP 98.6
== END 2022-03-23 18:35 | disposition home or self-care (01) ==
LOC: JONCNONCHE 07:45
PROVIDERS: ATTEND Internal Medicine Hematology & Oncology
PROC: 3E033GC Introduction of Other Therapeutic Substance into Peripheral Vein, Percutaneous Approach (ICD-10-PCS; principal; 2022-03-23)
DX: D50.9 Iron deficiency anemia, unspecified (principal)
CPT/HCPCS: 36415; 84100; 84703; 96365; J1439

== ENCOUNTER 2022-04-23 16:44 | Day surgery (SDC) | payer OTHER ==
[~2022-04-23 16:44] MED LIST changes: -CYANOCOBALAMIN (VITAMIN B-12) 1000 MCG/1 ML VIAL IM ONE
[2022-04-23] MEDS ORDERED: CYANOCOBALAMIN (VITAMIN B-12) 1000 MCG/1 ML VIAL IM ONE (17:15)
[2022-04-23 18:17] VITALS: RESP 18; TEMP 98.2
[2022-04-23 18:33] VITALS: BP 119/56; PULSE 85
== END 2022-04-23 18:34 | disposition home or self-care (01) ==
LOC: JONCNONCHE 16:44
PROVIDERS: ATTEND Internal Medicine Hematology & Oncology
PROC: 3E033GC Introduction of Other Therapeutic Substance into Peripheral Vein, Percutaneous Approach (ICD-10-PCS; principal; 2022-04-23)
DX: D50.9 Iron deficiency anemia, unspecified (principal)
CPT/HCPCS: 84703; 96365; J1439

== ENCOUNTER 2022-04-30 13:48 | Day surgery (SDC) | payer OTHER ==
[2022-04-30] MEDS ORDERED: CYANOCOBALAMIN (VITAMIN B-12) 1000 MCG/1 ML VIAL IM ONE (15:10)
[2022-04-30 16:13] VITALS: RESP 18
[2022-04-30 16:18] VITALS: BP 104/56; PULSE 85
[2022-04-30 16:20] VITALS: TEMP 98.2
== END 2022-04-30 15:15 | disposition home or self-care (01) ==
LOC: JONCNONCHE 13:48
PROVIDERS: ATTEND Internal Medicine Hematology & Oncology
PROC: 3E033GC Introduction of Other Therapeutic Substance into Peripheral Vein, Percutaneous Approach (ICD-10-PCS; principal; 2022-04-30)
DX: D50.9 Iron deficiency anemia, unspecified (principal)
CPT/HCPCS: 96365; J1439

== ENCOUNTER 2022-06-30 04:20 | Day surgery (SDC) | payer OTHER ==
[2022-06-29 10:58] VITALS: BMI 38.7
[2022-06-30] MEDS ORDERED: ONDANSETRON 4 MG/2 ML VIAL ONE (07:26)
[2022-06-30] MEDS ORDERED: LIDOCAINE HCL/PF 2% SDV 5ML VIAL ONE (07:26)
[2022-06-30] MEDS ORDERED: PROPOFOL 20 ML ONE (07:26)
[2022-06-30] MEDS ORDERED: MIDAZOLAM HCL 2 MG/2 ML SINGLE DOSE VIAL ONE (07:26)
[2022-06-30] MEDS ORDERED: FENTANYL CITRATE/PF 50 MCG/ML VIAL ONE (07:26)
[2022-06-30] MEDS ORDERED: DEXAMETHASONE SOD PHOSPHATE 4 MG/1 ML VIAL ONE (07:26)
[2022-06-30] MEDS ORDERED: KETOROLAC TROMETHAMINE 30 MG/1 ML VIAL ONE (08:25)
[2022-06-30] MEDS ORDERED: oxyCODONE HCL 5 MG TABLET PO PRN (08:59)
[2022-06-30] MEDS ORDERED: IBUPROFEN 800 MG/8 ML IJ IVPB PRN (08:59)
[2022-06-30] MEDS ORDERED: IBUPROFEN 600 MG TABLET (FP) PO PRN (08:59)
[2022-06-30] MEDS ORDERED: ONDANSETRON 4 MG/2 ML VIAL IVPUSH PRN ×2 (08:59→09:13)
[2022-06-30] MEDS ORDERED: ELECTROLYTE-148 SOLN 1,000 ML IV SCH (09:00)
[2022-06-30] MEDS ORDERED: FENTANYL CITRATE/PF 50 MCG/ML VIAL IVPUSH PRN ×2 (09:13)
[2022-06-30] MEDS ORDERED: LACTATED RINGERS SOLUTION 1,000 ML IV SCH (09:15)
[2022-06-30 09:16] VITALS: RESP 18
[2022-06-30 10:30] VITALS: BP 126/75; PULSE 85; TEMP 97.3
== END 2022-06-30 11:20 | disposition home or self-care (01) ==
LOC: JASU-SURG 04:20
PROVIDERS: ATTEND Obstetrics & Gynecology
PROC: 0UDB7ZX Extraction of Endometrium, Via Natural or Artificial Opening, Diagnostic (ICD-10-PCS; 2022-06-30)
PROC: 0UJD8ZZ Inspection of Uterus and Cervix, Via Natural or Artificial Opening Endoscopic (ICD-10-PCS; 2022-06-30)
PROC: 0UB98ZZ Excision of Uterus, Via Natural or Artificial Opening Endoscopic (ICD-10-PCS; principal; 2022-06-30 07:30)
DX: N92.1 Excessive and frequent menstruation with irregular cycle (principal); D25.0 Submucous leiomyoma of uterus; N84.0 Polyp of corpus uteri
CPT/HCPCS: 81025; 88305-TC; 94760

== ENCOUNTER 2024-05-16 04:03 | Day surgery (SDC) | payer OTHER ==
[2024-05-12 11:35] VITALS: BMI 39.5
[2024-05-16 07:07] VITALS: RESP 16; TEMP 97.6
[2024-05-16] MEDS ORDERED: ONDANSETRON 4 MG/2 ML VIAL IVPUSH PRN ×2 (07:39→08:57)
[2024-05-16] MEDS ORDERED: DEXAMETHASONE SOD PHOSPHATE 4 MG/1 ML VIAL ONE (08:28)
[2024-05-16] MEDS ORDERED: PROPOFOL 20 ML ONE (08:28)
[2024-05-16] MEDS ORDERED: MIDAZOLAM HCL 2 MG/2 ML SINGLE DOSE VIAL ONE (08:29)
[2024-05-16] MEDS ORDERED: IBUPROFEN 800 MG/8 ML IJ IVPB PRN (08:57)
[2024-05-16] MEDS ORDERED: IBUPROFEN 600 MG TABLET (FP) PO PRN (08:57)
[2024-05-16] MEDS ORDERED: oxyCODONE HCL 5 MG TABLET PO PRN (08:57)
[2024-05-16] MEDS ORDERED: ELECTROLYTE-148 SOLN 1,000 ML IV SCH (09:00)
[2024-05-16] MEDS ORDERED: KETOROLAC TROMETHAMINE 30 MG/1 ML VIAL ONE (10:00)
[2024-05-16] MEDS ORDERED: oxyCODONE HCL 5 MG TABLET ONE (11:36)
[2024-05-16] MEDS: oxyCODONE HCL 5 MG TABLET PO PRN (11:39)
[2024-05-16 12:45] VITALS: BP 130/70; PULSE 70
== END 2024-05-16 12:56 | disposition home or self-care (01) ==
LOC: JASU-SURG 04:03
PROVIDERS: ATTEND Obstetrics & Gynecology
PROC: 0UDB8ZZ Extraction of Endometrium, Via Natural or Artificial Opening Endoscopic (ICD-10-PCS; principal; 2024-05-16 08:30)
DX: N84.1 Polyp of cervix uteri (principal); N95.0 Postmenopausal bleeding
CPT/HCPCS: 81025; 86850; 86900; 86901; 88305-TC; 94760